=== PATIENT | female | born 1945 | race Caucasian/White ===

== ENCOUNTER 2022-06-18 09:58 | Emergency (ER) | payer BC ==
[~2022-06-18] VITALS: Ht 172.7 cm; Wt 82.6 kg
[2022-06-18 10:07] VITALS: BP_SYST 135
--- NOTE | 2022-06-18 12:16 | NUR ---
Patient left without being seen.
== END 2022-06-18 12:16 | disposition left against medical advice (07) ==
LOC: SED 09:58
DX: J02.9 Acute pharyngitis, unspecified (principal); H92.03 Otalgia, bilateral; Z53.21 Procedure and treatment not carried out due to patient leaving prior to being seen by health care provider